=== PATIENT | male | born 1965 | race Hispanic/Latino ===

== ENCOUNTER 2023-04-01 16:29 | Inpatient (IN) | payer SELFPAY ==
[2023-04-01 17:03] LABS: Protime INR 3.26
[2023-04-01 17:09] LABS: Absolute Lymphocytes (CBC) 0.4 K/uL (0.7-4.9); Hematocrit 27.2 % (39.6-49.0); Lymphocytes % 11.2 % (15.3-44.8); MCV 101.5 fL (80-100); MPV 7.8 fL (7.6-11.3); RBC Red Blood Cell Count 2.68 M/uL (4.33-5.43)
[2023-04-01 17:15] LABS: Albumin 2.1 g/dL (3.4-5.0); Bilirubin Total 6.8 mg/dL (0.2-1.0); Potassium 2.8 mEq/L (3.5-5.1); Protein, Total 6.6 g/dL (6.4-8.2)
[2023-04-01 17:16] LABS: Barbiturates NEGATIVE (NEGATIVE); Benzodiazepines NEGATIVE (NEGATIVE); Cocaine NEGATIVE (NEGATIVE); METHAMPHETAM NEGATIVE (NEGATIVE); Methadone NEGATIVE (NEGATIVE); Opiates NEGATIVE (NEGATIVE); Phencyclidine NEGATIVE (NEGATIVE); THC Cannibis NEGATIVE (NEGATIVE)
[2023-04-01 17:21] LABS: Urine Bacteria None Seen /HPF (<20); Urine Bilirubin 1+ (Negative); Urine Blood 3+ (OVER) (Negative); Urine Clarity Extremely Turbid (Clear); Urine Color Dark-Yellow (Yellow); Urine Glucose NEGATIVE (Negative); Urine Mucus 4+ /HPF (None Seen); Urine Protein 2+ (Negative); Urine RBC >50 /HPF (None Seen); Urine Urobilinogen 3+ (Normal)
--- NOTE | 2023-04-01 17:21 | RAD REPORT ---
EXAM DESCRIPTION: CT - [id number] - 04/01/2023 5:13 pm CLINICAL HISTORY: Trauma, head and neck injury. MENTAL STATUS CHANGE COMPARISON: <Comparisons> TECHNIQUE: Axial 5 mm thick images of the head were obtained. Axial 2 mm thick images of the cervical spine were obtained with sagittal and coronal reconstruction images generated and reviewed. All CT scans are performed using dose optimization technique as appropriate and may include automated exposure control or mA/KV adjustment according to patient size. FINDINGS: CT HEAD WITHOUT CONTRAST: No acute hemorrhage, hydrocephalus or extra-axial collection is identified.Moderate diffuse brain atr ophy.No areas of brain edema or midline shift. The paranasal sinuses and mastoids are clear.The calvarium is intact. CT CERVICAL SPINE WITHOUT CONTRAST: No fracture or subluxation.Mild cervical degenerative changes.No prevertebral soft tissues swelling i s identified. IMPRESSION: No acute intracranial or cervical spine findings.
--- NOTE | 2023-04-01 17:25 | RAD REPORT ---
EXAM DESCRIPTION: RAD - Chest Single View - 04/01/2023 5:18 pm CLINICAL HISTORY: altered mental status Chest pain. COMPARISON: No comparisonsNo comparisons FINDINGS: Portable technique limits examination quality. The lungs are grossly clear. The heart is mildly enlarged in size. No displaced fractures. IMPRESSION: No acute intrathoracic process suspected.
[2023-04-01] MEDS ORDERED: NA CHLORIDE 0.9% 1,000 ML ONE (17:40)
[2023-04-01] MEDS ORDERED: KCL 20 MEQ/100 mL IVPB 100 ML IV ONE (17:40)
--- NOTE | 2023-04-01 18:22 | EDPHYS ---
Physician Documentation [facility] Name: Bakari Mcclain Age: 57 yrs Sex: Male : 1965 Arrival Date: 04/01/2023 Time: 16:29 Bed 4 Private MD: ED Physician Brad Mosley HPI: 04/01 16:38 This 52 yrs old Male presents to ER via EMS with complaints of Altered Mental Status. cp 16:38 The patient presents with confusion. Onset: The symptoms/episode began/occurred at an cp unknown time. Possible causes: history of liver cirrhosis. 16:38 Associated signs and symptoms: Pertinent positives: weakness, incontinence, Pertinent cp negatives: abdominal pain, chest pain. 16:38 Patient's baseline: Neuro: alert and fully oriented, Motor: no deficits, Ambulation: cp walks without assistance, Speech: normal. Historical: - Allergies: 16:34 Unable to obtain; ss - PMHx: 16:34 Cirrhosis of liver; ss - Immunization history:: Adult Immunizations up to date. - Social history:: Smoking status: unknown. ROS: 16:40 Constitutional: Positive for poor PO intake, Negative for fever. cp 16:40 Cardiovascular: Negative for chest pain. cp 16:40 Abdomen/GI: Negative for abdominal pain. 16:40 Neuro: Positive for altered mental status. 16:40 Unable to obtain ROS due to altered mental status. Exam: 16:43 ECG was reviewed by the Attending Physician. cp 16:45 Constitutional: The patient appears in no acute distress. cp 16:45 Head/Face: Normocephalic, atraumatic. cp 16:45 Eyes: Periorbital structures: appear normal, Pupils: equal, round, and reactive to cp light and accomodation, Extraocular movements: intact throughout, Sclera: icterus, is present, Lids and lashes: appear normal, bilaterally. 16:45 ENT: External ear(s): are unremarkable, Ear canal(s): are normal, clear, TM's: dullness, bilaterally, Nose: is normal, Mouth: Lips: moist, Oral mucosa: pink and intact, moist, Posterior pharynx: Airway: no evidence of obstruction, patent. 16:45 Neck: C-spine: vertebral tenderness, is not appreciated, crepitus, is not appreciated, ROM/movement: pain, is not appreciated, limited range of motion, is not appreciated, Meningeal signs: are not present, nuchal rigidity, is not appreciated. 16:45 Chest/axilla: Inspection: normal, Palpation: is normal, no crepitus, no tenderness. 16:45 Cardiovascular: Rate: normal, Rhythm: regular, Edema: is not appreciated, JVD: is not appreciated. 16:45 Respiratory: the patient does not display signs of respiratory distress, Respirations: normal, no use of accessory muscles, no retractions, labored breathing, is not present, Breath sounds: are clear throughout, no decreased breath sounds, no stridor, no wheezing. 16:45 Abdomen/GI: Inspection: abdomen appears normal, Bowel sounds: active, all quadrants, Palpation: abdomen is soft and non-tender, in all quadrants. 16:45 Back: pain, is absent. 16:45 Skin: Appearance: Color: jaundiced. 16:45 Neuro: Orientation: to person, Mentation: confused, Motor: moves all fours. Vital Signs: 16:31 Pulse 84; Resp 18; ss 16:57 BP 126 / 75; Pulse 67; Resp 12; Temp 98.7(O); Pulse Ox 99% ; vg1 17:42 BP 128 / 70; Pulse 64; Resp 14; Pulse Ox 100% ; vg1 19:30 BP 118 / 60; Pulse 71; Resp 15; Pulse Ox 100% on R/A; ll3 [place] Coma Score: 17:38 Eye Response: spontaneous(4). Motor Response: localizes pain(5). Verbal Response: ml4 confused(4). Total: 13. MDM: 16:34 Patient medically screened. cp 18:25 Data reviewed: vital signs, nurses notes, lab test result(s), EKG, radiologic studies, cp CT scan, plain films. 18:25 Differential Diagnosis: electrolyte abnormality, pneumonia, seizure, sepsis, volume cp depletion. Consideration of Admission/Observation Patient was admitted/placed on observation. Management of patient was discussed with the following: Hospitalist: Rashmi Palafox, COMPRESSOR ASSEMBLER will admit after discussion. Care significantly affected by the following chronic conditions: Liver Disease. Response to treatment: the patient's symptoms have mildly improved after treatment. 04/01 16:37 Order name: Blood Culture Adult (2) cp 04/01 16:37 Order name: CBC with Diff; Complete Time: 17:19 cp 04/01 17:19 Interpretation: Normal except: WBC 3.80; RBC 2.68; HGB 8.7; HCT 27.2; MCV 101.5; PLT cp 49; RDW 19.7; JD% 77.4; LYM% 11.2; LYMA 0.4. 04/01 16:37 Order name: CMP; Complete Time: 17:19 04/01 17:19 Interpretation: Normal except: CO2 20; CL 117; K 2.8; AST 58; ALK 123; BILIT 6.8; CA cp 7.5; ALB 2.1; GLOB 4.5; A/G 0.5. 04/01 16:37 Order name: Lactate w/ 2H reflex if indic.; Complete Time: 17:19 04/01 17:21 Interpretation: Abnormal: LAC 2.6. 04/01 16:37 Order name: Protime (+inr); Complete Time: 17:08 04/01 17:32 Interpretation: Reviewed. 04/01 16:37 Order name: Ptt, Activated; Complete Time: 17:08 04/01 16:37 Order name: Urinalysis w/ reflexes; Complete Time: 17:31 04/01 17:31 Interpretation: Normal except: UCLA Extremely Turbid; UBILI 1+; UKET 2+; UBLD 3+ cp (OVER); UPROT 2+; UUROB 3+; URBC >50; MUCUS 4+; BYST Trace. 04/01 16:37 Order name: AMMONIA; Complete Time: 17:19 04/01 17:21 Interpretation: Reviewed. 04/01 16:37 Order name: CK; Complete Time: 17:19 04/01 16:37 Order name: Procalcitonin; Complete Time: 17:31 04/01 17:32 Interpretation: Reviewed. 04/01 16:37 Order name: UDS; Complete Time: 17:19 04/01 16:37 Order name: ETOH Level; Complete Time: 17:19 cp 04/01 16:39 Order name: COVID-19 SARS RT PCR; Complete Time: 20:45 04/01 16:52 Order name: Glucose, Ancillary Testing; Complete Time: 17:08 EDMS 04/01 20:00 Order name: Lactate Sepsis 2 HR Follow-up; Complete Time: 20:45 EDMS 04/01 16:37 Order name: Chest Single View XRAY; Complete Time: 17:31 cp 04/01 17:32 Interpretation: Report review. 04/01 16:37 Order name: CT Head C Spine; Complete Time: 17:31 cp 04/01 17:32 Interpretation: Reviewed report. 04/01 16:37 Order name: EKG; Complete Time: 16:38 cp 04/01 16:37 Order name: Accucheck; Complete Time: 16:55 cp 04/01 16:37 Order name: Cardiac monitoring; Complete Time: 16:55 cp 04/01 16:37 Order name: EKG - Nurse/Tech; Complete Time: 16:55 cp 04/01 16:37 Order name: IV Saline Lock - Large Bore; Complete Time: 16:55 cp 04/01 16:37 Order name: Labs collected and sent; Complete Time: 16:55 cp 04/01 16:37 Order name: O2 Per Protocol; Complete Time: 16:55 cp 04/01 16:37 Order name: O2 Sat Monitoring; Complete Time: 16:55 cp 04/01 16:37 Order name: Vital Signs; Complete Time: 17:00 cp EC:43 Rate is 73 beats/min. Rhythm is regular. MT interval is normal. QRS interval is normal. cp QT interval is prolonged at 464 msec. T waves are Inverted in lead aVR. Interpreted by me. Reviewed by me. Administered Medications: 16:37 CANCELLED (Physician Discretion): NS 0.9% IV 1000 ml IV at 1 bolus Per protocol; 1000 cp mL bolus 17:37 Drug: Potassium Chloride IV 20 mEq Route: IV; Rate: calculated rate; Infused Over: 2 ml4 hrs; Site: left antecubital; Delivery: Primary tubing; 20:55 Follow up: IV Status: Completed infusion kd3 17:38 Drug: NS 0.9% IV 1000 ml Route: IV; Rate: 1 bolus; Site: left antecubital; ml4 20:55 Follow up: IV Status: Completed infusion kd3 19:59 Drug: Lactulose PO 30 grams Volume: 45 ml; Route: PO; ll3 20:55 Follow up: Response: No adverse reaction kd3 19:59 Drug: Rocephin IV 1 grams Route: IV; Rate: calculated rate; Site: left antecubital; 3 20:55 Follow up: IV Status: Completed infusion kd3 Disposition Summary: 04/01/23 18:21 Hospitalization Ordered Hospitalization Status: Inpatient Admission cp Provider: Mahnaz Palafox cp [facility] cp Condition: Stable cp Problem: new cp Symptoms: have improved cp Bed/Room Type: Standard cp Room Assignment: 203(04/01/23 19:28) Diagnosis - Encephalopathy, unspecified cp - Hepatic failure, unspecified without coma cp - Altered mental status, unspecified cp Forms: - Medication Reconciliation Form cp - SBAR form cp Addendum: 04/03/2023 20:03 Co-signature as Attending Physician, Brad Mosley MD I reviewed the patient's care r n provided by the Advanced Practice Provider and agree with the diagnosis and treatment plan. Signatures: Dispatcher [employer] EDPR Margot Thompson RN RN mw Nieto, Roman, MD MD rn Blanchard, Shelby RN BERTO ss Dallin Rivas, JENIFFER PA cp Erlin Holland RN RN ll3 Lindsey Villafana RN RN kd3 Mahnaz Palafox, PAArnaldo PA-C yanna Devine RNIII, Douglas, RN RN ml4 Corrections: (The following items were deleted from the chart) 04/01 16:37 16:37 NS 0.9% IV 1000 ml IV at 1 bolus Per protocol; 1000 mL bolus ordered. cp cp 19:28 18:21 cp mw
--- NOTE | 2023-04-01 18:22 | ER ---
Nurse's Notes [facility] Name: Bakari Mcclain Age: 57 yrs Sex: Male : 1965 Arrival Date: 04/01/2023 Time: 16:29 Bed 4 Private MD: Diagnosis: Encephalopathy, unspecified;Hepatic failure, unspecified without coma;Altered mental status, unspecified Presentation: 04/01 16:31 Chief complaint: Patient states: Pt was reportedly walking around outside all day ss refusing to drink water. Pt is reportedly homeless and was found on the ground by bystander and assisted to a chair. EMS reports BP 122/75 BGL 92 and temp 100.2. Coronavirus screen: Client denies travel out of the [place] in the last 14 days. Ebola Screen: Patient denies exposure to infectious person. Patient denies travel to an Ebola-affected area in the 21 days before illness onset. Initial Sepsis Screen: Does the patient meet any 2 criteria? No. Patient's initial sepsis screen is negative. Does the patient have a suspected source of infection? No. Patient's initial sepsis screen is negative. Risk Assessment: Do you want to hurt yourself or someone else? Patient reports no desire to harm self or others. Onset of symptoms is unknown. 16:31 Method Of Arrival: EMS: [facility] 16:31 Acuity: LUIS 2 ss Historical: - Allergies: 16:34 Unable to obtain; ss - PMHx: 16:34 Cirrhosis of liver; ss - Immunization history:: Adult Immunizations up to date. - Social history:: Smoking status: unknown. Screenin:01 [facility] ED Fall Risk Assessment (Adult). Abuse screen: Denies threats or abuse. Denies vg1 injuries from another. Nutritional screening: No deficits noted. Tuberculosis screening: No symptoms or risk factors identified. Assessment: 17:01 General: Appears uncomfortable, ill, slender, unkempt, Behavior is. Neuro: Level of vg1 Consciousness is awake, alert, confused, Oriented to person. Cardiovascular: Capillary refill is > 3 seconds in bilateral fingers Patient's skin is warm and dry. Respiratory: Airway is patent Respiratory effort is even, unlabored. 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 : No signs and/or symptoms were reported regarding the genitourinary system. EENT: Eyes with exudate noted from outer aspect of conjuctiva of right eye, iris of right eye, inner aspect of conjuctiva of right eye, outer aspect of conjuctiva of left eye, iris of left eye and inner aspect of conjunctiva of left eye Sclera/Cornea are cloudy in MONA eyes jaundice . Derm: Skin is jaundiced. Musculoskeletal: Circulation, motion, and sensation intact. 17:38 Reassessment: Patient appears in no apparent distress at this time. No changes from ml4 previously documented assessment. General: Behavior is calm, quiet. Pain: Unable to use pain scale. Patient is disoriented. Neuro:. Vital Signs: 16:31 Pulse 84; Resp 18; ss 16:57 BP 126 / 75; Pulse 67; Resp 12; Temp 98.7(O); Pulse Ox 99% ; vg1 17:42 BP 128 / 70; Pulse 64; Resp 14; Pulse Ox 100% ; vg1 19:30 BP 118 / 60; Pulse 71; Resp 15; Pulse Ox 100% on R/A; ll3 [place] Coma Score: 17:38 Eye Response: spontaneous(4). Motor Response: localizes pain(5). Verbal Response: ml4 confused(4). Total: 13. ED Course: 16:30 Patient arrived in ED. ss 16:34 Dallin Rivas PA is PHCP. cp 16:34 Brad Mosley MD is Attending Physician. cp 16:34 Triage completed. ss 16:34 Arm band placed on right wrist. ss 16:58 BERTO DevineIII, Douglas, RN is Primary Nurse. ml4 17:01 Patient has correct armband on for positive identification. Placed in gown. Bed in low vg1 position. Call light in reach. Side rails up X2. Client placed on continuous cardiac and pulse oximetry monitoring. NIBP monitoring applied. 17:01 Maintain EMS IV. Dressing intact. Good blood return noted. Site clean \T\ dry. Gauge \T\ vg 1 site: 18 L AC. Flushed left antecubital with 5 ml normal saline. 17:03 Resting quietly. Patient moved to CT via stretcher. ml4 17:15 CT Head C Spine In Process Unspecified. EDMS 17:18 Awaiting lab results, Awaiting radiology results. Patient moved back from CT. ml4 17:19 Patient has correct armband on for positive identification. Placed in gown. Bed in low ml4 position. Side rails up X2. Client placed on continuous cardiac and pulse oximetry monitoring. NIBP monitoring applied. Lights dimmed. Warm blanket given. Head of bed elevated. 17:20 Chest Single View XRAY In Process Unspecified. EDMS 18:14 No provider procedures requiring assistance completed. IV is patent, is intact. ml4 18:20 Mahnaz Palafox PA-C is Hospitalizing Provider. cp 19:33 Primary Nurse role handed off by BERTO DevineIII, Douglas, BERTO 20:54 Patient admitted, IV remains in place. kd3 Administered Medications: 16:37 CANCELLED (Physician Discretion): NS 0.9% IV 1000 ml IV at 1 bolus Per protocol; 1000 cp mL bolus 17:37 Drug: Potassium Chloride IV 20 mEq Route: IV; Rate: calculated rate; Infused Over: 2 ml4 hrs; Site: left antecubital; Delivery: Primary tubing; 20:55 Follow up: IV Status: Completed infusion kd3 17:38 Drug: NS 0.9% IV 1000 ml Route: IV; Rate: 1 bolus; Site: left antecubital; ml4 20:55 Follow up: IV Status: Completed infusion kd3 19:59 Drug: Lactulose PO 30 grams Volume: 45 ml; Route: PO; ll3 20:55 Follow up: Response: No adverse reaction kd3 19:59 Drug: Rocephin IV 1 grams Route: IV; Rate: calculated rate; Site: left antecubital; ll3 20:55 Follow up: IV Status: Completed infusion kd3 Medication: 17:01 VIS not applicable for this client. vg1 Outcome: 18:21 Decision to Hospitalize by Provider. cp 20:54 Admitted to Med/surg kd3 20:54 Condition: stable 20:54 Discharge instructions given to patient, Instructed on the need for admit, Demonstrated understanding of instructions, Prescriptions given X 20:55 Patient left the ED. kd3 Signatures: Dispatcher [employer] EDMS Deanna Collier RN RN Dallin Balderas PA PA cp Garcia, Victoria RN RN vg1 Eden Atkins Erlin Holland RN RN 3 Lindsey Villafana RN RN kd3 BERTO DevineIII, Douglas, RN RN ml4
--- NOTE | 2023-04-01 18:52 | P.HP ---
Certification for Inpatient Patient admitted to: Observation With expected LOS: <2 Midnights Patient will require the following post-hospital care: None Practitioner: I am a practitioner with admitting privileges, knowledge of patient current condition, hospital course, and medical plan of care. Services: Services provided to patient in accordance with Admission requirements found in Title 42 Section 412.3 of the Code of Federal Regulations Patient History Date of Service: 04/01/23 Reason for admission: Hepatic Encephalopathy History of Present Illness: Mr. Mcclain is a 57 year old male with past medical history of alcoholic cirrhosis who presented to the emergency department via EMS with altered mental status. Per report, patient is homeless and has been walking outside in the heat and refusing to drink water. He was found on the ground by a bystander who assisted him. He is only oriented x 1 currently. His labs were significant for hemoglobin 8.7, hematocrit 27.2, platelets 49, potassium 2.8, chloride 117, CO2 20, AST 58, alk phos 123,tbili 6.8, lactate 2.6, INR 3.26, ammonia 104 . Imaging negative for acute findings. He was given lactulose, IV fluids, and rocephin in the ED. Will admit for further evaluation and management. Allergies No Known Allergies Allergy (Verified 04/01/23 21:09) Home medications list reviewed: Yes - Past Medical/Surgical History -: Cirrhosis Psychosocial/ Personal History: Patient is homeless. - Family History Father History Unknown: Yes - Social History Smoking Status: Unknown if ever smoked Alcohol use: Yes Place of Residence: [facility] Review of Systems is unable to be obtained Physical Examination - Vital Signs Temperature: 98.7 F Blood Pressure: 128/70 Pulse: 64 Respirations: 14 Pulse Ox (%): 100 - Physical Exam General: Oriented x1, Confused HEENT: Atraumatic, Other (dry mucuous membranes) Neck: 2+ carotid pulse no bruit, JVD not distended Respiratory: Clear to auscultation bilaterally, Normal air movement Cardiovascular: No edema, Regular rate/rhythm Gastrointestinal: Soft and benign, Non-distended Musculoskeletal: No clubbing Integumentary: No rashes, No breakdown Neurological: Normal speech, Sensation intact - Studies Laboratory Data (last 24 hrs) 04/01/23 16:30: PT 35.9 H, INR 3.26, APTT 38.4 H 04/01/23 16:30: Sodium 145, Potassium 2.8 L, BUN 13, Creatinine 0.78, Glucose 93, Total Bilirubin 6.8 H, AST 58 H, ALT 24, Alkaline Phosphatase 123 H 04/01/23 16:30: WBC 3.80 L, Hgb 8.7 L, Hct 27.2 L, Plt Count 49 L Assessment and Plan - Problems (Diagnosis) (1) Hepatic encephalopathy Current Visit: Yes Status: Acute (2) Cirrhosis Current Visit: Yes Status: Chronic Qualifiers: Hepatic cirrhosis type: alcoholic cirrhosis Ascites presence: without ascites Qualified Code(s): K70.30 - Alcoholic cirrhosis of liver without ascites (3) Anemia Current Visit: Yes Status: Chronic Qualifiers: Anemia type: other cause Other causes of anemia: chronic disease, other Qualified Code(s): D63.8 - Anemia in other chronic diseases classified elsewhere (4) Pancytopenia Current Visit: Yes Status: Acute - Plan Patient is admitted for further management of hepatic encephalopathy. Currently oriented x 1. Received 30 grams lactulose in ED. Mentation slowly improving. Elevated lactate likely secondary to volume depletion. Continue IV hydration. Blood cultures obtained in ED & 1 gram rocephin given. No source of infection identified thus far. Pancytopenia and anemia likely secondary to liver failure. Check ammonia, LFTs daily. Will also check hepatitis panel. Lactulose daily. Monitor and replete electrolytes per protocol. Discharge Plan: Home Plan to discharge in: 24 Hours - Advance Directives Does patient have a Living Will: No Does patient have a Durable POA for Healthcare: No - Code Status/Comfort Care Code Status Assessed: Yes Code Status: Full Code Physician Review: Patient Assessed, Agree with Above Assessment and Plan Critical Care: No Time Spent Managing Pts Care (In Minutes): 50
[2023-04-01] MEDS ORDERED: LACTULOSE 20 GM/30 ML UCUP ONE (20:00)
[2023-04-01] MEDS ORDERED: ONDANSETRON 4 MG/2 ML VIAL IV PRN (20:00)
[2023-04-01] MEDS ORDERED: NA CHLORIDE 0.9% 50 ML ONE (20:00)
[2023-04-01] MEDS ORDERED: CEFTRIAXONE 1000 MG/VIAL ONE (20:00)
[2023-04-01] MEDS ORDERED: LACTULOSE 20 GM/30 ML UCUP PO PRN (20:00)
[2023-04-01] MEDS ORDERED: NA CHLORIDE 0.9% 1,000 ML IV ONE (21:01)
[2023-04-01 21:35] VITALS: BMI 23.9
[2023-04-01] MEDS: NA CHLORIDE 0.9% 1,000 ML IV SCH (21:38)
[2023-04-02 03:25] LABS: Absolute Lymphocytes (CBC) 0.4 K/uL (0.7-4.9); Hematocrit 25.2 % (39.6-49.0); Lymphocytes % 11.2 % (15.3-44.8); MCV 101.7 fL (80-100); MPV 7.9 fL (7.6-11.3); RBC Red Blood Cell Count 2.48 M/uL (4.33-5.43)
[2023-04-02 04:03] LABS: Albumin 1.9 g/dL (3.4-5.0); Bilirubin Total 5.8 mg/dL (0.2-1.0); Ferritin 52.3 ng/mL (26-388); Magnesium 1.7 mg/dL (1.6-2.4); Potassium 2.8 mEq/L (3.5-5.1); Protein, Total 5.8 g/dL (6.4-8.2); Thyroid Stimulating Hormone 2.17 uIU/mL (0.358-3.740)
[2023-04-02] MEDS ORDERED: MAGNESIUM SULFATE 1 gm IVPB 1 GM/100 ML BAG IV ONE (04:09)
[2023-04-02] MEDS: KCL 20 MEQ/100 mL IVPB 20 MEQ/100 ML BAG IV SCH ×3 (05:53→11:12)
[2023-04-02] MEDS: NA CHLORIDE 0.9% 1,000 ML IV SCH ×3 (06:00→21:12)
[2023-04-02] MEDS ORDERED: LACTULOSE 20 GM/30 ML UCUP PO SCH (09:00)
[2023-04-02] MEDS ORDERED: LACTULOSE 20 GM/30 ML UCUP PO PRN (09:59)
--- NOTE | 2023-04-02 11:09 | P.PN ---
Subjective Date of Service: 04/02/23 Chief Complaint: Hepatic Encephalopathy Patient is more awake and interactive. He denies any complaint. Nursing staff report he had a large bowel movement overnight. Ammonia level has decreased significantly. Physical Examination - Vital Signs Temperature: 99.0 F Blood Pressure: 111/57 Pulse: 72 Respirations: 14 Pulse Ox (%): 100 - Studies Laboratory Data (last 24 hrs) 04/01/23 16:30: PT 35.9 H, INR 3.26, APTT 38.4 H 04/01/23 16:30: Sodium 145, Potassium 2.8 L, BUN 13, Creatinine 0.78, Glucose 93, Total Bilirubin 6.8 H, AST 58 H, ALT 24, Alkaline Phosphatase 123 H 04/01/23 16:30: WBC 3.80 L, Hgb 8.7 L, Hct 27.2 L, Plt Count 49 L Assessment And Plan - Current Problems (Diagnosis) (1) Hepatic encephalopathy Current Visit: Yes Status: Acute (2) Pancytopenia Current Visit: Yes Status: Acute (3) Cirrhosis Current Visit: Yes Status: Chronic Qualifiers: Hepatic cirrhosis type: alcoholic cirrhosis Ascites presence: without ascites Qualified Code(s): K70.30 - Alcoholic cirrhosis of liver without ascites - Plan Ammonia level and patient mental status significantly improved. Titrate lactulose for target 2 soft bowel movements per day. Replete potassium. Hepatitis profile has been. Continue prophylactic IV Rocephin. Diet as tolerated. Increase activity as tolerated. Patient with coagulopathy and hyperbilirubinemia portending poor prognosis. No ascites. Lactic acidosis likely related to impaired liver metabolism of lactic acid. Social service consult for disposition.
[2023-04-02] MEDS: LACTULOSE 20 GM/30 ML UCUP PO SCH ×2 (11:11→19:37)
[2023-04-02] MEDS: SPIRONOLACTONE 25 MG TABLET PO SCH (11:26)
[2023-04-02] MEDS ORDERED: POTASSIUM CL SA 10 MEQ TAB PO ONE ×2 (17:53→18:04)
[2023-04-02 20:51] VITALS: O2SAT 99
[2023-04-03] MEDS: NA CHLORIDE 0.9% 1,000 ML IV SCH ×2 (00:12→05:54)
[2023-04-03 05:08] LABS: Hepatitis B Core IgM Nonreactive (Nonreactive); Hepatitis B surface AG Interp. Nonreactive (Nonreactive); Hepatitis C Virus Ab Nonreactive (Nonreactive)
[2023-04-03 06:08] LABS: Absolute Lymphocytes (CBC) 0.8 K/uL (0.7-4.9); Hematocrit 24.1 % (39.6-49.0); MCV 100.2 fL (80-100); RBC Red Blood Cell Count 2.41 M/uL (4.33-5.43)
[2023-04-03 06:31] LABS: Magnesium 1.7 mg/dL (1.6-2.4); Potassium 3.1 mEq/L (3.5-5.1)
[2023-04-03] MEDS ORDERED: POTASSIUM CL SA 10 MEQ TAB PO ONE (06:36)
[2023-04-03] MEDS ORDERED: NA CHLORIDE 0.9% 0 ML ONE (06:53)
[2023-04-03] MEDS ORDERED: CALCIUM GLUCONATE 1 GM IVPB 1 GM/50 ML BAG IV ONE (06:57)
[2023-04-03] MEDS ORDERED: CALCIUM GLUC 10% INJ 4.65 MEQ in NA CHLORIDE 0.9% 100 ML IV ONE (07:00)
[2023-04-03] MEDS: SPIRONOLACTONE 25 MG TABLET PO SCH (08:20)
[2023-04-03] MEDS: LACTULOSE 20 GM/30 ML UCUP PO SCH (08:20)
[2023-04-03 08:21] VITALS: BP 114/70
--- NOTE | 2023-04-03 08:46 | P.DS ---
Admission Date: 04/03/23 Discharge Date: 04/03/23 Disposition: ROUTINE DISCHARGE Discharge Condition: FAIR Reason for Admission: Hepatic Encephalopathy - Problems (1) Hepatic encephalopathy Current Visit: Yes Status: Acute (2) Pancytopenia Current Visit: Yes Status: Acute (3) Cirrhosis Current Visit: Yes Status: Chronic Qualifiers: Hepatic cirrhosis type: alcoholic cirrhosis Ascites presence: without ascites Qualified Code(s): K70.30 - Alcoholic cirrhosis of liver without ascites Brief History of Present Illness: Mr. Mcclain is a 57 year old male with past medical history of alcoholic cirrhosis who presented to the emergency department via EMS with altered mental status. Per report, patient is homeless and had been walking outside in the heat and refusing to drink water. He was found on the ground by a bystander who assisted him. He was only oriented x 1 currently. His labs were significant for hemoglobin 8.7, hematocrit 27.2, platelets 49, potassium 2.8, chloride 117, CO2 20, AST 58, alk phos 123,tbili 6.8, lactate 2.6, INR 3.26, ammonia 104 . Imaging negative for acute findings. He was given lactulose, IV fluids, and rocephin in the ED. Patient admitted for further management. Hospital Course: Patient admitted to the medical floor and treated for hepatic encephalopathy with lactulose and Aldactone. Patient had large bowel movement. Ammonia level and patient mental status significantly improved. Hepatitis profile checked was negative He was placed on prophylactic IV Rocephin. Patient tolerated diet and has been ambulatory Patient with coagulopathy and hyperbilirubinemia portending poor prognosis. History of alcoholic liver cirrhosis. No ascites. Lactic acidosis likely related to impaired liver metabolism of lactic acid. Patient complain he lives with his brother. His symptoms have significantly improved. Patient discharged with lactulose as prophylaxis for hepatic encephalopathy, and Aldactone. Vital Signs/Physical Exam: Temp Pulse Resp BP Pulse Ox 97.8 F 86 18 114/70 100 04/03/23 04:00 04/03/23 08:20 04/03/23 04:00 04/03/23 08:20 04/03/23 04:00 General: Alert, In no apparent distress HEENT: Mucous membr. moist/pink Neck: JVD not distended Respiratory: Clear to auscultation bilaterally, Normal air movement Cardiovascular: Regular rate/rhythm, Normal S1 S2 Gastrointestinal: Soft and benign, Non-distended Musculoskeletal: No swelling Integumentary: No rashes, No cyanosis Neurological: Normal strength at 5/5 x4 extr Laboratory Data at Discharge: WBC 3.20 thou/uL (4.3-10.9) L 04/03/23 05:46 Hgb 7.9 g/dL (13.6-17.9) L 04/03/23 05:46 Hct 24.1 % (39.6-49.0) L 04/03/23 05:46 Plt Count 38 thou/uL (152-406) L 04/03/23 05:46 PT 35.9 SECONDS (9.5-12.5) H 04/01/23 16:30 INR 3.26 04/01/23 16:30 APTT 38.4 SECONDS (24.3-36.9) H 04/01/23 16:30 Sodium 134 mEq/L (136-145) L D 04/03/23 05:46 Potassium 3.1 mEq/L (3.5-5.1) L D 04/03/23 05:46 BUN 7 mg/dL (7-18) 04/03/23 05:46 Creatinine 0.53 mg/dL (0.70-1.30) L 04/03/23 05:46 Glucose 88 mg/dL (74-106) 04/03/23 05:46 Phosphorus 3.0 mg/dL (2.5-4.9) 04/02/23 02:20 Magnesium 1.7 mg/dL (1.6-2.4) 04/03/23 05:46 Total Bilirubin 5.8 mg/dL (0.2-1.0) H 04/02/23 02:20 AST 65 U/L (15-37) H 04/02/23 02:20 ALT 28 U/L (16-61) 04/02/23 02:20 Alkaline Phosphatase 117 U/L (45-117) 04/02/23 02:20 Triglycerides 42 mg/dL (<150) 04/02/23 02:20 Cholesterol 64 mg/dL (<200) 04/02/23 02:20 HDL Cholesterol 35 mg/dL (40-60) L 04/02/23 02:20 Cholesterol/HDL Ratio 1.83 04/02/23 02:20 Home Medications: Lactulose [Cephulac*] 10 ml PO BID #473 ml 04/03/23 Spironolactone [Aldactone*] 50 mg PO DAILY #30 tab 04/03/23 New Medications: Spironolactone [Aldactone*] 50 mg PO DAILY #30 tab Lactulose [Cephulac*] 10 ml PO BID #473 ml Diet: Regular Activity: Ad cary Time spent managing pt's care (in minutes): 34
[2023-04-03 09:51] VITALS: TEMP 98.6
[2023-04-03 10:21] LABS: Blood Morphology Comment NOTED (NOT SEEN); Platelet Estimate DECR; White Blood Cell Scan OK (OK)
[2023-04-03 10:22] LABS: Anisocytosis 1+; Macrocytosis 1+; Ovalocytes SLIGHT; Poikilocytosis SLIGHT; Teardrop Cell 1+
--- NOTE | 2023-04-05 19:19 | EKG ---
Test Date: 2023-04-01 Test Time: 16:37:51 Cell Attendant: MISA MEASUREMENT RESULTS: Intervals: Rate: 73 MD: 124 QRSD: 84 QT: 464 QTc: 511 [place]: P: 6 MD: 124 QRS: -16 T: 51 INTERPRETIVE STATEMENTS: Normal sinus rhythm Moderate voltage criteria for LVH, may be normal variant Prolonged QT Abnormal ECG No previous ECG available for comparison Electronically Signed On 04-05-23 19:12:37 CDT by Khurram Nagy
== END 2023-04-03 10:41 | disposition home or self-care (01) | DRG 442 ==
LOC: ER 16:29 → EDBD 16:29 → ERHOLD 18:46 → 2ND 19:39 → OBSVTOIN 04-03 08:52
PROVIDERS: ADMIT Internal Medicine; ATTEND Internal Medicine
DX: K76.82 Hepatic encephalopathy (principal); D61.818 Other pancytopenia; E87.20 Acidosis, unspecified; D68.9 Coagulation defect, unspecified; K70.30 Alcoholic cirrhosis of liver without ascites; K72.90 Hepatic failure, unspecified without coma; D63.8 Anemia in other chronic diseases classified elsewhere; E86.9 Volume depletion, unspecified; E80.6 Other disorders of bilirubin metabolism; Z20.822 Contact with and (suspected) exposure to COVID-19; Z59.00 Homelessness unspecified
CPT/HCPCS: 36415; 70450; 71045; 72125; 80048; 80053; 80061; 80074; 80307; 81001; 82077; 82140; 82550; 82607; 82728; 82947; 83540; 83605; 83735; 84100; 84132; 84145; 84443; 84466; 85025; 85610; 85730; 87040; 87635; 93005; 96365; 96366; 99285; G0378; J0610; J0696; J3475; J3480; J7030